=== PATIENT | male | born 1960 | race Caucasian/White ===

== ENCOUNTER 2022-03-13 15:45 | Inpatient (IN) | payer OTHER ==
[2022-03-13] MEDS ORDERED: Sodium Chloride 0.9% 10 ML Syringe FLUSH PRN ×2 (16:17→19:04)
[2022-03-13] MEDS ORDERED: methylPREDNISolone Sodium Succinate 125 MG/2 ML SDV IVPUSH ONE (16:19)
[2022-03-13] MEDS ORDERED: Albuterol/Ipratropium 3.0-0.5 MG/3 ML Neb Soln NEB ONE (16:19)
[2022-03-13] MEDS ORDERED: Azithromycin 500 MG in Sodium Chloride 0.9% 250 ML IV ONE (16:42)
[2022-03-13] MEDS ORDERED: cefTRIAXone 2 GM in Sodium Chloride 0.9% 100 ML IV ONE (16:42)
[2022-03-13 16:56] LABS: ANION GAP 12.3 mEq/L (7-13); CHLORIDE,CL 97 mmol/L (98-107); SODIUM,NA 135 mmol/L (136-145)
[2022-03-13 16:58] LABS: ESTIMATED GFR 79 mL/min (>=60)
[2022-03-13 17:01] LABS: CORONAVIRUS COVID-19 NAA NEGATIVE (NEGATIVE); RESPIRATORY SYNCYTIAL VIR NAA NEGATIVE (NEGATIVE)
[2022-03-13] MEDS ORDERED: Acetaminophen/HYDROcodone 325-10 MG Tab PO PRN (19:04)
[2022-03-13] MEDS ORDERED: HYDROmorphone 0.5 MG/0.5 ML Syringe IVPUSH PRN (19:04)
[2022-03-13] MEDS ORDERED: Polyethylene Glycol 3350 Powder 17 GM Packet PO PRN (19:04)
[2022-03-13] MEDS ORDERED: Acetaminophen 325 MG Tab PO PRN (19:04)
[2022-03-13] MEDS ORDERED: Magnesium Hydroxide 400 MG/5 ML Susp 30 ML Cup PO PRN (19:04)
[2022-03-13] MEDS ORDERED: Ondansetron 4 MG/2 ML SDV IVPUSH PRN (19:04)
[2022-03-13] MEDS ORDERED: Albuterol/Ipratropium 3.0-0.5 MG/3 ML Neb Soln NEB PRN (19:04)
[2022-03-13] MEDS ORDERED: SODIUM CHLORIDE 0.9% IV SCH (19:15)
[2022-03-13] MEDS ORDERED: VANCOMYCIN IV SCH (19:15)
[2022-03-13] MEDS ORDERED: Vancomycin 2 GM in Sodium Chloride 0.9% 500 ML IV ONE (19:30)
[2022-03-13] MEDS ORDERED: guaiFENesin 600 MG Tab.ER PO SCH (21:00)
[2022-03-13] MEDS: Saccharomyces Boulardii (Probiotic) 250 MG Cap PO SCH (21:20)
[2022-03-13] MEDS: Sodium Chloride 0.9% 10 ML Syringe FLUSH SCH (21:20)
[2022-03-13] MEDS ORDERED: Albuterol 6.7 GM Inhaler INH PRN (21:44)
[2022-03-13] MEDS ORDERED: SEMAGLUTIDE 0.5 MG/0.5 ML SQ SCH (21:45)
[2022-03-13] MEDS: Albuterol/Ipratropium 3.0-0.5 MG/3 ML Neb Soln NEB SCH (22:08)
[2022-03-13] MEDS ORDERED: Lactated Ringers 1,000 ML IV SCH (22:30)
[2022-03-14] MEDS: Albuterol/Ipratropium 3.0-0.5 MG/3 ML Neb Soln NEB SCH ×6 (03:36→22:34)
[2022-03-14 07:16] LABS: ANION GAP 12.6 mEq/L (7-13)
[2022-03-14] MEDS ORDERED: Formoterol/Mometasone 200-5 MCG 8.8 GM Inhaler IH SCH (09:00)
[2022-03-14] MEDS ORDERED: Acetylcysteine 20% 200 MG/ML 30 ML SDV PO SCH (09:00)
[2022-03-14] MEDS: Ascorbic Acid 500 MG Tab PO SCH (09:32)
[2022-03-14] MEDS: Saccharomyces Boulardii (Probiotic) 250 MG Cap PO SCH ×2 (09:32→20:57)
[2022-03-14] MEDS: Fluticasone NASAL Spray 16 GM Bottle NASBOTH SCH (09:32)
[2022-03-14] MEDS: Aspirin 81 MG Tab.Chew PO SCH (09:32)
[2022-03-14] MEDS: Sodium Chloride 0.9% 10 ML Syringe FLUSH SCH ×2 (09:34→20:58)
[2022-03-14] MEDS ORDERED: predniSONE 20 MG Tab PO ONE (10:55)
[2022-03-14] MEDS ORDERED: 50% Dextrose in Water 50 ML Syringe IVPUSH PRN (10:57)
[2022-03-14] MEDS ORDERED: Glucagon,Human Recombinant 1 MG Vial IM PRN (10:57)
[2022-03-14] MEDS: Sodium Chloride 0.9% Inhalation Soln 3 ML Neb INH SCH ×2 (11:28→20:57)
[2022-03-14] MEDS: Piperacillin/Tazobactam 3.375 GM in Sodium Chloride 0.9% 100 ML IV SCH ×3 (12:28→23:01)
[2022-03-14] MEDS: Insulin Lispro 100 Units/ML 3 ML Vial SUBCUT SCH ×2 (12:59→17:37)
[2022-03-14] MEDS ORDERED: Metoprolol Tartrate 5 MG/5 ML SDV IVPUSH PRN (13:23)
[2022-03-14] MEDS: FARXIGA 5 MG PO SCH (15:52)
[2022-03-14] MEDS: TIOTROPIUM INH SCH (15:53)
[2022-03-14] MEDS: predniSONE 20 MG Tab PO SCH (17:38)
[2022-03-14] MEDS ORDERED: predniSONE 10 MG Tab PO SCH (18:00)
[2022-03-14] MEDS ORDERED: Piperacillin/Tazobactam 3.375 GM in Sodium Chloride 0.9% 100 ML IV SCH (19:00)
[2022-03-14] MEDS: Simvastatin 40 MG Tab PO SCH (20:56)
[2022-03-14] MEDS: Montelukast 10 MG Tab PO SCH (20:57)
[2022-03-14] MEDS: Formoterol/Mometasone 200-5 MCG 8.8 GM Inhaler IH SCH (21:11)
[2022-03-15] MEDS: Albuterol/Ipratropium 3.0-0.5 MG/3 ML Neb Soln NEB SCH ×6 (03:27→23:16)
[2022-03-15] MEDS: Piperacillin/Tazobactam 3.375 GM in Sodium Chloride 0.9% 100 ML IV SCH ×4 (06:27→23:16)
[2022-03-15 07:14] LABS: ANION GAP 11.9 mEq/L (7-13)
[2022-03-15] MEDS: Formoterol/Mometasone 200-5 MCG 8.8 GM Inhaler IH SCH ×2 (07:21→18:07)
[2022-03-15] MEDS: Ascorbic Acid 500 MG Tab PO SCH (08:49)
[2022-03-15] MEDS: Saccharomyces Boulardii (Probiotic) 250 MG Cap PO SCH ×2 (08:49→21:15)
[2022-03-15] MEDS: predniSONE 20 MG Tab PO SCH ×2 (08:50→18:08)
[2022-03-15] MEDS: Aspirin 81 MG Tab.Chew PO SCH (08:50)
[2022-03-15] MEDS: Sodium Chloride 0.9% Inhalation Soln 3 ML Neb INH SCH ×2 (08:50→21:03)
[2022-03-15] MEDS: Insulin Lispro 100 Units/ML 3 ML Vial SUBCUT SCH ×3 (08:57→18:07)
[2022-03-15] MEDS: Fluticasone NASAL Spray 16 GM Bottle NASBOTH SCH (08:57)
[2022-03-15] MEDS: FARXIGA 5 MG PO SCH (08:59)
[2022-03-15] MEDS: Sodium Chloride 0.9% 10 ML Syringe FLUSH SCH ×2 (08:59→21:05)
[2022-03-15] MEDS: TIOTROPIUM INH SCH (09:00)
[2022-03-15] MEDS ORDERED: Sodium Chloride 0.9% 0 ML ONE (18:29)
[2022-03-15] MEDS: ACETYLCYSTEINE 600 MG PO SCH (21:15)
[2022-03-15] MEDS: Enoxaparin 40 MG/0.4 ML Syringe SUBCUT SCH (21:15)
[2022-03-15] MEDS: Simvastatin 40 MG Tab PO SCH (21:17)
[2022-03-15] MEDS: Montelukast 10 MG Tab PO SCH (21:17)
[2022-03-16] MEDS: Albuterol/Ipratropium 3.0-0.5 MG/3 ML Neb Soln NEB SCH ×6 (04:26→23:15)
[2022-03-16] MEDS: Piperacillin/Tazobactam 3.375 GM in Sodium Chloride 0.9% 100 ML IV SCH ×4 (05:22→23:14)
[2022-03-16] MEDS: Formoterol/Mometasone 200-5 MCG 8.8 GM Inhaler IH SCH ×2 (07:26→16:59)
[2022-03-16] MEDS: Enoxaparin 40 MG/0.4 ML Syringe SUBCUT SCH (10:12)
[2022-03-16] MEDS: Saccharomyces Boulardii (Probiotic) 250 MG Cap PO SCH ×2 (10:12→20:00)
[2022-03-16] MEDS: Aspirin 81 MG Tab.Chew PO SCH (10:13)
[2022-03-16] MEDS: predniSONE 20 MG Tab PO SCH ×2 (10:13→17:00)
[2022-03-16] MEDS: Ascorbic Acid 500 MG Tab PO SCH (10:13)
[2022-03-16] MEDS: Insulin Lispro 100 Units/ML 3 ML Vial SUBCUT SCH ×3 (10:13→16:55)
[2022-03-16] MEDS: FARXIGA 5 MG PO SCH (10:14)
[2022-03-16] MEDS: Fluticasone NASAL Spray 16 GM Bottle NASBOTH SCH (10:15)
[2022-03-16] MEDS: ACETYLCYSTEINE 600 MG PO SCH ×2 (10:16→20:02)
[2022-03-16] MEDS: TIOTROPIUM INH SCH (10:24)
[2022-03-16] MEDS: Sodium Chloride 0.9% Inhalation Soln 3 ML Neb INH SCH ×2 (10:49→20:43)
[2022-03-16] MEDS: Sodium Chloride 0.9% 10 ML Syringe FLUSH SCH ×2 (10:56→20:01)
[2022-03-16] MEDS: Simvastatin 40 MG Tab PO SCH (20:00)
[2022-03-16] MEDS: Montelukast 10 MG Tab PO SCH (20:00)
[2022-03-17] MEDS: Albuterol/Ipratropium 3.0-0.5 MG/3 ML Neb Soln NEB SCH ×6 (03:58→23:10)
[2022-03-17] MEDS: Piperacillin/Tazobactam 3.375 GM in Sodium Chloride 0.9% 100 ML IV SCH ×4 (05:26→23:11)
[2022-03-17 06:56] LABS: ANION GAP 9.9 mEq/L (7-13)
[2022-03-17] MEDS: Formoterol/Mometasone 200-5 MCG 8.8 GM Inhaler IH SCH ×2 (09:45→17:11)
[2022-03-17] MEDS: Insulin Lispro 100 Units/ML 3 ML Vial SUBCUT SCH ×3 (09:48→17:13)
[2022-03-17] MEDS: Enoxaparin 40 MG/0.4 ML Syringe SUBCUT SCH (09:54)
[2022-03-17] MEDS: Sodium Chloride 0.9% 10 ML Syringe FLUSH SCH ×2 (09:56→20:17)
[2022-03-17] MEDS: Aspirin 81 MG Tab.Chew PO SCH (10:10)
[2022-03-17] MEDS: Saccharomyces Boulardii (Probiotic) 250 MG Cap PO SCH ×2 (10:10→20:23)
[2022-03-17] MEDS: predniSONE 20 MG Tab PO SCH ×2 (10:10→17:11)
[2022-03-17] MEDS: Ascorbic Acid 500 MG Tab PO SCH (10:10)
[2022-03-17] MEDS: FARXIGA 5 MG PO SCH (10:14)
[2022-03-17] MEDS: ACETYLCYSTEINE 600 MG PO SCH ×2 (10:15→20:21)
[2022-03-17] MEDS: Fluticasone NASAL Spray 16 GM Bottle NASBOTH SCH (10:15)
[2022-03-17] MEDS: Sodium Chloride 0.9% Inhalation Soln 3 ML Neb INH SCH ×2 (10:18→20:16)
[2022-03-17] MEDS: TIOTROPIUM INH SCH (12:08)
[2022-03-17] MEDS: Simvastatin 40 MG Tab PO SCH (20:16)
[2022-03-17] MEDS: Montelukast 10 MG Tab PO SCH (20:16)
[2022-03-18] MEDS: Albuterol/Ipratropium 3.0-0.5 MG/3 ML Neb Soln NEB SCH ×4 (03:53→15:32)
[2022-03-18] MEDS: Piperacillin/Tazobactam 3.375 GM in Sodium Chloride 0.9% 100 ML IV SCH ×2 (05:11→11:55)
[2022-03-18] MEDS: Formoterol/Mometasone 200-5 MCG 8.8 GM Inhaler IH SCH (06:27)
[2022-03-18 06:45] LABS: ANION GAP 12.1 mEq/L (7-13)
[2022-03-18] MEDS: Ascorbic Acid 500 MG Tab PO SCH (08:28)
[2022-03-18] MEDS: Aspirin 81 MG Tab.Chew PO SCH (08:28)
[2022-03-18] MEDS: Enoxaparin 40 MG/0.4 ML Syringe SUBCUT SCH (08:28)
[2022-03-18] MEDS: predniSONE 20 MG Tab PO SCH (08:28)
[2022-03-18] MEDS: Insulin Lispro 100 Units/ML 3 ML Vial SUBCUT SCH ×2 (08:31→12:01)
[2022-03-18] MEDS: ACETYLCYSTEINE 600 MG PO SCH (08:34)
[2022-03-18] MEDS: Fluticasone NASAL Spray 16 GM Bottle NASBOTH SCH (08:34)
[2022-03-18] MEDS: FARXIGA 5 MG PO SCH (08:34)
[2022-03-18] MEDS: Sodium Chloride 0.9% 10 ML Syringe FLUSH SCH (08:35)
[2022-03-18] MEDS: TIOTROPIUM INH SCH (08:36)
[2022-03-18] MEDS: Sodium Chloride 0.9% Inhalation Soln 3 ML Neb INH SCH (08:36)
[2022-03-18] MEDS: Saccharomyces Boulardii (Probiotic) 250 MG Cap PO SCH (10:10)
== END 2022-03-18 15:45 | disposition home or self-care (01) | DRG 871 ==
LOC: DL.ED 15:45 → DL.MS 18:33
PROVIDERS: ADMIT Internal Medicine; ATTEND Internal Medicine
DX: A41.9 Sepsis, unspecified organism (principal); J18.9 Pneumonia, unspecified organism; Z68.42 Body mass index [BMI] 45.0-49.9, adult; E87.1 Hypo-osmolality and hyponatremia; J44.0 Chronic obstructive pulmonary disease with (acute) lower respiratory infection; J44.1 Chronic obstructive pulmonary disease with (acute) exacerbation; I95.9 Hypotension, unspecified; Z20.822 Contact with and (suspected) exposure to COVID-19; E66.9 Obesity, unspecified; E87.6 Hypokalemia; D64.9 Anemia, unspecified; E88.09 Other disorders of plasma-protein metabolism, not elsewhere classified; E87.8 Other disorders of electrolyte and fluid balance, not elsewhere classified; G47.33 Obstructive sleep apnea (adult) (pediatric); I10 Essential (primary) hypertension; E11.65 Type 2 diabetes mellitus with hyperglycemia; Z79.899 Other long term (current) drug therapy; Z79.82 Long term (current) use of aspirin
CPT/HCPCS: 0241U; 36415; 71045; 80048; 80053; 80202; 82947; 83605; 83735; 83880; 84484; 85025; 86140; 87040; 87070; 87077; 87186; 87205; 93005; 94640; 99233; 99238; A9270-GY; J0456; J0696; J1650; J1815-GY; J2543; J2930; J3370; J3490; J7040; J7050; J7120; J7512; J7620-GY

== ENCOUNTER 2022-05-19 08:30 | Inpatient (IN) | payer OTHER ==
[2022-05-19] MEDS ORDERED: methylPREDNISolone Sodium Succinate 125 MG/2 ML SDV IVPUSH ONE (08:53)
[2022-05-19] MEDS ORDERED: Albuterol/Ipratropium 3.0-0.5 MG/3 ML Neb Soln NEB ONE (08:53)
[2022-05-19] MEDS ORDERED: Acetaminophen 500 MG Tab PO ONE (08:53)
[2022-05-19] MEDS: Sodium Chloride 0.9% 10 ML Syringe FLUSH PRN ×2 (08:55→20:40)
[2022-05-19] MEDS ORDERED: Sodium Chloride 0.9% 1,000 ML IV ONE (08:56)
[2022-05-19] MEDS ORDERED: cefTRIAXone 2 GM Vial IVPUSH ONE (08:57)
[2022-05-19] MEDS ORDERED: Azithromycin 500 MG in Sodium Chloride 0.9% 250 ML IV ONE (08:57)
[2022-05-19 09:28] LABS: ANION GAP 16.6 mEq/L (7-13); CHLORIDE,CL 101 mmol/L (98-107); SODIUM,NA 140 mmol/L (136-145)
[2022-05-19 09:29] LABS: ESTIMATED GFR 100 mL/min (>=60)
[2022-05-19 09:43] LABS: CORONAVIRUS COVID-19 NAA NEGATIVE (NEGATIVE); RESPIRATORY SYNCYTIAL VIR NAA NEGATIVE (NEGATIVE)
[2022-05-19] MEDS ORDERED: Oseltamivir 75 MG Cap PO ONE (09:48)
[2022-05-19 10:02] LABS: O2 DELIVERY DEVICE NASAL CANNULA
[2022-05-19 10:05] LABS: ALLEN TEST POSITIVE; O2 FLOW RATE 3.5; O2 SATURATION ARTERIAL 91 % (95-100); PCO2 ARTERIAL 47 mmHg (35-45); PO2 ARTERIAL 64 mmHg (70-100)
[2022-05-19 10:06] LABS: BASE EXCESS ARTERIAL 2 mmol/L ((-2)-(+3)); BICARBONATE,ARTERIAL 27.2 mmol/L (22-26)
[2022-05-19] MEDS ORDERED: Ondansetron 4 MG/2 ML SDV IVPUSH PRN (11:04)
[2022-05-19] MEDS ORDERED: Acetaminophen 325 MG Tab PO PRN (11:04)
[2022-05-19] MEDS ORDERED: Morphine 2 MG/ML SYRINGE IVPUSH PRN (11:04)
[2022-05-19] MEDS ORDERED: Albuterol/Ipratropium 3.0-0.5 MG/3 ML Neb Soln NEB PRN (11:04)
[2022-05-19] MEDS ORDERED: Melatonin 3 MG Tab PO PRN (11:10)
[2022-05-19] MEDS ORDERED: hydrALAZINE 20 MG/ML SDV IVPUSH PRN (11:10)
[2022-05-19] MEDS ORDERED: Albuterol 6.7 GM Inhaler INH PRN (11:12)
[2022-05-19] MEDS ORDERED: amLODIPine 5 MG Tab PO SCH (11:15)
[2022-05-19] MEDS ORDERED: Aspirin 81 MG Tab.Chew PO SCH (11:15)
[2022-05-19] MEDS ORDERED: Metoclopramide 10 MG/2 ML SDV IVPUSH PRN (11:21)
[2022-05-19] MEDS ORDERED: traMADol 50 MG Tab PO PRN (11:24)
[2022-05-19] MEDS ORDERED: predniSONE 20 MG Tab PO SCH (11:30)
[2022-05-19] MEDS ORDERED: Glucagon,Human Recombinant 1 MG Vial IM PRN (11:43)
[2022-05-19] MEDS ORDERED: 50% Dextrose in Water 50 ML Syringe IVPUSH PRN (11:43)
[2022-05-19] MEDS: Levofloxacin/Dextrose 5%-Water 750 MG in Premix Bag 1 BAG IV SCH (11:59)
[2022-05-19] MEDS: VANCOmycin 1.5 GM/300 ML 1.5 GM in Premix Bag 1 BAG IV SCH ×2 (13:47→23:59)
[2022-05-19] MEDS ORDERED: Fluticasone NASAL Spray 16 GM Bottle NASBOTH SCH (14:30)
[2022-05-19] MEDS: Insulin Lispro 100 Units/ML 3 ML Vial SUBCUT SCH ×3 (14:31→21:04)
[2022-05-19] MEDS: SODIUM CHLORIDE FOR INHALATION INH SCH (19:54)
[2022-05-19] MEDS: Simvastatin 40 MG Tab PO SCH (20:38)
[2022-05-19] MEDS: Montelukast 10 MG Tab PO SCH (20:38)
[2022-05-19] MEDS: Oseltamivir 75 MG Cap PO SCH (20:39)
[2022-05-20 06:48] LABS: HEMOGLOBIN A1C 6.3 % (<5.7)
[2022-05-20 06:50] LABS: ANION GAP 11.9 mEq/L (7-13)
[2022-05-20] MEDS: Fluticasone NASAL Spray 16 GM Bottle NASBOTH SCH (09:01)
[2022-05-20] MEDS: Enoxaparin 40 MG/0.4 ML Syringe SUBCUT SCH (09:02)
[2022-05-20] MEDS: Oseltamivir 75 MG Cap PO SCH ×2 (09:03→21:12)
[2022-05-20] MEDS: Losartan 50 MG Tab PO SCH (09:03)
[2022-05-20] MEDS: amLODIPine 5 MG Tab PO SCH (09:04)
[2022-05-20] MEDS: Pantoprazole 40 MG Tab.CR PO SCH (09:04)
[2022-05-20] MEDS: Aspirin 81 MG Tab.Chew PO SCH (09:04)
[2022-05-20] MEDS: predniSONE 20 MG Tab PO SCH (09:05)
[2022-05-20] MEDS: SODIUM CHLORIDE FOR INHALATION INH SCH ×2 (09:07→19:10)
[2022-05-20] MEDS: Insulin Lispro 100 Units/ML 3 ML Vial SUBCUT SCH ×4 (09:08→21:16)
[2022-05-20] MEDS: Sodium Chloride 0.9% 10 ML Syringe FLUSH PRN ×2 (11:42→21:25)
[2022-05-20] MEDS: Levofloxacin/Dextrose 5%-Water 750 MG in Premix Bag 1 BAG IV SCH (11:42)
[2022-05-20] MEDS: Albuterol/Ipratropium 3.0-0.5 MG/3 ML Neb Soln NEB SCH ×5 (11:43→23:38)
[2022-05-20] MEDS: VANCOmycin 1.5 GM/300 ML 1.5 GM in Premix Bag 1 BAG IV SCH ×2 (13:28→21:15)
[2022-05-20] MEDS: Magnesium Sulfate/Water 2 GM in Premix Bag 1 BAG IV SCH ×2 (15:07→18:01)
[2022-05-20] MEDS ORDERED: atorvaSTATin 20 MG Tab PO SCH (21:00)
[2022-05-20] MEDS: ACETYLCYSTEINE 600 MG PO SCH (21:12)
[2022-05-20] MEDS: Montelukast 10 MG Tab PO SCH (21:12)
[2022-05-20] MEDS: Simvastatin 40 MG Tab PO SCH (21:12)
[2022-05-21] MEDS: VANCOmycin 1.5 GM/300 ML 1.5 GM in Premix Bag 1 BAG IV SCH ×2 (04:11→13:34)
[2022-05-21] MEDS: Sodium Chloride 0.9% 10 ML Syringe FLUSH PRN (04:12)
[2022-05-21] MEDS: Albuterol/Ipratropium 3.0-0.5 MG/3 ML Neb Soln NEB SCH ×4 (04:27→15:31)
[2022-05-21 06:50] LABS: ANION GAP 11.7 mEq/L (7-13)
[2022-05-21] MEDS: Insulin Lispro 100 Units/ML 3 ML Vial SUBCUT SCH ×2 (07:33→11:44)
[2022-05-21] MEDS: Pantoprazole 40 MG Tab.CR PO SCH ×2 (07:36→09:06)
[2022-05-21] MEDS: SODIUM CHLORIDE FOR INHALATION INH SCH (07:39)
[2022-05-21] MEDS: ACETYLCYSTEINE 600 MG PO SCH (09:05)
[2022-05-21] MEDS: Oseltamivir 75 MG Cap PO SCH (09:06)
[2022-05-21] MEDS: amLODIPine 5 MG Tab PO SCH (09:07)
[2022-05-21] MEDS: Losartan 50 MG Tab PO SCH (09:07)
[2022-05-21] MEDS: predniSONE 20 MG Tab PO SCH (09:09)
[2022-05-21] MEDS: Aspirin 81 MG Tab.Chew PO SCH (09:10)
[2022-05-21] MEDS: Fluticasone NASAL Spray 16 GM Bottle NASBOTH SCH (09:10)
[2022-05-21] MEDS: Enoxaparin 40 MG/0.4 ML Syringe SUBCUT SCH (09:11)
[2022-05-21] MEDS: Levofloxacin/Dextrose 5%-Water 750 MG in Premix Bag 1 BAG IV SCH (11:19)
[2022-05-21] MEDS ORDERED: Potassium Chloride 20 MEQ in Premix Bag 1 BAG IV SCH ×2 (15:00→16:00)
[2022-05-21] MEDS ORDERED: Dextrose 5% in Water 1,000 ML IV SCH ×2 (15:00→16:00)
== END 2022-05-21 16:25 | disposition home or self-care (01) | DRG 193 ==
LOC: DL.ED 08:30 → DL.MS 10:14
PROVIDERS: ADMIT Internal Medicine; ATTEND Internal Medicine
PROC: 5A09357 Assistance with Respiratory Ventilation, Less than 24 Consecutive Hours, Continuous Positive Airway Pressure (ICD-10-PCS; principal; 2022-05-19)
DX: J10.00 Influenza due to other identified influenza virus with unspecified type of pneumonia (principal); J96.01 Acute respiratory failure with hypoxia; J44.0 Chronic obstructive pulmonary disease with (acute) lower respiratory infection; Z68.41 Body mass index [BMI] 40.0-44.9, adult; I10 Essential (primary) hypertension; E11.9 Type 2 diabetes mellitus without complications; E66.01 Morbid (severe) obesity due to excess calories; Z20.822 Contact with and (suspected) exposure to COVID-19; G47.33 Obstructive sleep apnea (adult) (pediatric); Z87.09 Personal history of other diseases of the respiratory system; Z79.4 Long term (current) use of insulin; Z79.899 Other long term (current) drug therapy; Z79.82 Long term (current) use of aspirin; Z79.52 Long term (current) use of systemic steroids; Z97.3 Presence of spectacles and contact lenses; Z86.16 Personal history of COVID-19; Z90.89 Acquired absence of other organs; Z98.890 Other specified postprocedural states; Z87.81 Personal history of (healed) traumatic fracture
CPT/HCPCS: 0241U; 36415; 36600; 71046; 80053; 80202; 81003; 82803; 82947; 83036; 83605; 83735; 83880; 84484; 85025; 87040; 87070; 87205; 87641; 94640; 96365; 96375; 99284; 99285-25; A9270-GY; J0456; J0696; J1650; J1815-GY; J1956; J2930; J3370; J3475; J3490; J7030; J7050; J7512; J7620-GY